=== PATIENT | female | born 1955 ===

== ENCOUNTER 2021-09-14 06:00 | Day surgery (SDC) | payer OTHER ==
[~2021-09-14 06:00] MED LIST: COZAAR100 MG PO; NORVASC2.5 MG PO
[2021-09-14] MEDS ORDERED: PERCOCET 5-3251 EACH PO (09:37)
[2021-09-14] MEDS ORDERED: RECTICARE30 GM TOP (09:37)
== END 2021-09-14 16:50 | disposition home or self-care (01) ==
LOC: CIR.AMB 06:00
PROVIDERS: ATTEND Surgery
DX: D12.8 Benign neoplasm of rectum (principal); Z20.822 Contact with and (suspected) exposure to COVID-19